=== PATIENT | female | born 2000 | race Caucasian/White ===

== ENCOUNTER 2025-03-02 11:43 | Emergency (ER) | payer OTHER, SELFPAY ==
[2025-03-02 11:54] VITALS: BP 126/74
--- NOTE | 2025-03-02 13:47 | ED.GENMED ---
History of Present Illness
General
Chief Complaint: Problems
Time Seen by Provider: 03/02/25 13:47
History of Present Illness
History of Present Illness:
FOCUSED PAST MEDICAL HISTORY
- Asthma, possible IBS
REVIEW OF OLD RECORDS
- I reviewed records, the patient was seen here in 2018 with dizziness
Note:
CHIEF COMPLAINT(S)
Suspected miscarriage.
HISTORY OF PRESENT ILLNESS
The patient is a 24-year-old female who presents with concerns of a possible miscarriage. She reports that the first day of her last menstrual period was on December 11. She had a positive test around February 14 and has conducted several
tests since, all of which were positive. The patient noted a brown discharge last night, followed by the passage of a blood clot this morning. Just before arriving at the facility, she experienced another episode of clotting. Additionally, she
reports associated cramping. This is her first . On physical examination, there was discomfort in response to upper abdominal palpation and minimal pain on palpation of the lower abdomen, specifically on the left side. The patient denies
any dizziness. The bleeding began today and prompted this visit.
PHYSICAL EXAM
General: Alert, no acute distress. Appears comfortable
Skin: Warm, dry.
Head: Normocephalic, atraumatic.
Neck: Supple, trachea midline.
Oral cavity: Oral mucosa moist.
Cardiovascular: Normal peripheral perfusion, no edema.
Respiratory: Respirations are non-labored.
Gastrointestinal: Abdomen nondistended, minimal left pelvic tenderness
Back: Normal range of motion, normal alignment.
Musculoskeletal: Normal range of motion, normal strength.
Neurological: Alert and oriented to person, place, time, and situation, no focal neurological deficit observed.
Psychiatric: Cooperative, appropriate mood and affect.
PLAN
1. Blood type and Rh factor testing to determine the need for Rho(D) immune globulin (RhoGAM) if the patient is Rh-negative.
2. Quantitative serum human chorionic gonadotropin (hCG) level to assess viability.
3. Ultrasound imaging to evaluate the status, starting with a transabdominal approach and potentially supplemented with a transvaginal ultrasound if needed.
DIFFERENTIAL DIAGNOSIS
The Differential Diagnosis includes, in no particular order and is not limited to:
1. Threatened miscarriage
2. Complete miscarriage
3. Incomplete miscarriage
4. Ectopic
5. Molar
6. Subchorionic hemorrhage
7. Implantation bleeding
8. Cervical polyps
9. Atypical menstruation
10. Infectious causes such as pelvic inflammatory disease
RADIOLOGY
- Ultrasound imaging obtained and shows that the uterus is empty
LABS
- hCG 26, O+ blood type
UPDATE
-SUMMARY OF ENCOUNTER
The patient, a 24-year-old female, presented to the emergency department due to concerns of a potential miscarriage. She reported a positive test and began experiencing symptoms including brown discharge and passage of blood clots,
accompanied by cramping. The first day of her last menstrual period was December 11. Quantitative serum hCG was conducted, revealing a low level of 26, which is inconsistent with her expected gestational age of approximately 10 weeks. The expected hCG
level for this gestational period should be closer to 100,000. An ultrasound was indicated but no living fetus was observed, suggesting a miscarriage. Differential diagnosis includes miscarriage, possibly early-stage or ectopic ; however,
ectopic has not been definitively excluded. The patient was advised to follow up with her [facility] for further evaluation and monitoring of hCG levels until they return to zero to confirm the complete resolution of the .
PLAN
The plan is to ensure follow-up with an [facility] at the [facility]– [place][Note 2]. The patient should have additional blood tests to monitor hCG levels and possibly repeat an ultrasound for more clarification. The goal is to rule out ectopic and to
confirm miscarriage by monitoring until hCG levels normalize.
PATIENT EDUCATION AND COUNSELING
The patient was informed about the low likelihood of this being a viable , based on the current hCG levels and ultrasound findings. She was educated on the importance of follow-up care to monitor hCG levels to rule out an ectopic
and ensure complete resolution of the miscarriage. The possible outcomes and need for continuous monitoring were discussed, providing her with reassurance and clarity regarding further management steps.
FOLLOW-UP INSTRUCTIONS
The patient is instructed to schedule a follow-up visit with her [facility] at the [facility] [place][Note 2] as soon as possible. Continued monitoring of hCG levels and possibly another ultrasound are recommended to confirm the diagnosis and rule out any
complications, such as ectopic .
MEDICAL DECISION MAKING
-Complexity of Data Reviewed: DDx list includes threatened miscarriage, complete miscarriage, incomplete miscarriage, ectopic , molar , subchorionic hemorrhage, implantation bleeding, cervical polyps, atypical menstruation, and
infectious causes such as pelvic inflammatory disease.
-Data:
Category 1: Tests and documents reviewed include the quantitative serum hCG which showed a level of 26 and an ultrasound that showed an empty uterus and no evidence of ectopic
Category 3: Discussion of management occurred regarding whether the could still be viable or if a miscarriage had occurred, ultimately suspecting the latter given the low hCG level and absence of structures on ultrasound.
-Risk:
Consideration of Admission/Observation: Escalation of care including admission/observation was considered given the complexity and risk of the patients presenting complaint, exam findings, and underlying comorbidities. However, ultimately I feel the
patient is safe for outpatient management with close follow-up. Reasoning: Work-up is reassuring, does not reveal any acute life/organ-threatening processes, patients symptoms are well controlled upon reevaluation, reexamination is reassuring,
vitals are stable, patient agreeable with discharge, and reliable for follow-up.
DIAGNOSIS
Miscarriage suspected
Phy Exam
Physical Exam
Physical Exam:
See HPI
Course
Orders/Labs/Results
Orders:
Orders
03/02/25 13:48
US Pelvis Only (non-obstetric) Urgent
Reason For Exam: preg vag bleed
03/02/25 13:56
Blood Group&Type Urgent
Beta HCG Quantitative Urgent
Is this a screen?: No
Complete Blood Count/With Diff Urgent
03/02/25 14:00
0.9% Sodium Chloride 1000 ml [Nss] 1,000 ml IV BOLUS
Abnormal Lab Results
03/02/25
13:56
WBC 11.5 H 10^3/uL
(4.8-10.8)
MPV 10.6 H fL
(7.4-10.4)
Absolute Neuts (auto) 8.1 H 10^3/uL
(1.4-6.5)
Absolute Monos (auto) 0.8 H 10^3/uL
(0.1-0.6)
Lymphocytes % 19.6 L %
(20.5-51.1)
03/02/25 13:56
Vital Signs
Initial and Last Documented VS:
Initial Vital Signs
Temp Pulse Resp BP Pulse Ox
36.8 C 80 20 126/74 98
03/02/25 11:54 03/02/25 11:54 03/02/25 11:54 03/02/25 11:54 03/02/25 11:54
Last Documented Vital Signs
Temp Pulse Resp BP Pulse Ox
36.8 C 98 16 127/90 98
03/02/25 11:54 03/02/25 17:22 03/02/25 17:22 03/02/25 17:22 03/02/25 17:22
Information
Weeks gestation: N/A
Location: N/A
*Pulse Oximetry
SaO2: 98
Oxygen Mode of Delivery: Room air
Patient hypoxic: no
*Critical Care Note
Total Time (30-74mins, 75-104mins- exclusive of procedures): Not Applicable
ED Attending Note
-
Portions of this chart may have been created with voice recognition software.� Occasional wrong word or��sound alike� substitutions may have occurred due to the inherent limitations of voice recognition software.
Discharge Plan
Departure
Patient Disposition: Home (Routine Discharge)
Date of Disposition: 03/02/25
Time of Disposition: 17:56
Patient with high blood pressure during this ER visit?: Yes
Discharge Problem:
Complete miscarriage
Instructions: Miscarriage (DC)
Prescriptions:
No Action
No Current Medications
0
Referrals:
UNKNOWN - PT DOES,NOT KNOW [Family Provider]
Activity Restrictions/Additional Instructions:
Your hCG quantitative level is only 26. If the first day of your last menstrual period was truly in November, this would highly suggest a nonviable /miscarriage. The ultrasound did not show anything in the uterus or anything that looks like
an ectopic at this time. There was not even a gestational sac. I strongly recommend that you follow-up with an [facility] doctor for reevaluation. Return here if worse or other concerns. Your blood type is O+ therefore you do not need
RhoGAM.
Interventions
Interventions:
*Risk Screen - Suicide Last Done: 03/02/25 14:39
*General Assessment Last Done: 03/02/25 11:54
*Neglect/Abuse Screening Last Done: 03/02/25 14:39
*ED- Fall Risk Assessment Last Done: 03/02/25 14:39
*ED COVID-19 Vaccine History Last Done: 03/02/25 14:39
*ED Influenza Vaccine History Last Done: 03/02/25 14:39
*Nursing Disposition Last Done: 03/02/25 18:04
ED-Female Genitourinary Assessment Last Done: 03/02/25 13:58
Discharge Date and Time
Discharge Date/Time: 03/02/25 18:04
Print Language: POLISH
[2025-03-02 13:57] VITALS: BMI 35.4
[2025-03-02] MEDS: NSS 1000 IV (14:01)
[2025-03-02 14:25] LABS: Hematocrit 42.2 % (37.0-47.0); Hemoglobin 14.5 g/dL (12.0-16.0); Mean Corp Hgb Conc. 34.4 g/dL (33.0-37.0); Mean Corpuscular Volume 84.9 fL (81.0-99.0); Nucleated Red Blood Cells % 0 %; Platelet Count 301 10^3/uL (130-400); Red Cell Dist. Width 12.3 % (11.5-14.5)
[2025-03-02 14:40] VITALS: BP 135/84
[2025-03-02 15:09] LABS: Beta HCG Quantitative 26.20 mIU/ml
[2025-03-02 17:22] VITALS: BP 127/90
== END 2025-03-02 18:04 | disposition home or self-care (01) ==
LOC: EMR 11:43
PROVIDERS: EMERGENCY PHYSICIAN Emergency Medicine
DX: O03.9 Complete or unspecified spontaneous abortion without complication (principal); J45.909 Unspecified asthma, uncomplicated
CPT/HCPCS: 99284; 96360; 96361; 76856; 84702; 85025; 86900; 86901